=== PATIENT | female | born 1965 | race Two or more races ===

== ENCOUNTER → 2024-11-12 | Outpatient (CLI) | payer MEDICAID, SELFPAY ==
--- NOTE | 2024-11-12 14:30 | XR_ITS ---
Examination: Breast ultrasound complete, bilateral Date and time of exam: November 12, 2024 1434 hours INDICATIONS: Stinging sensation in the left nipple beginning 3 months ago Technique: Real-time grayscale ultrasonographic imaging bilateral breasts, including all 4 quadrants as well as nipple retroareolar and axillary regions. Findings: Sonographic images right and left breast demonstrated no cystic or solid masses IMPRESSION: BI-RADS Category 1: Negative study
== END | disposition home or self-care (01) ==
PROVIDERS: PCP Physician Assistant; Referring Provider Physician Assistant; Visit Provider Physician Assistant
DX: R92.30 Dense breasts, unspecified (principal); N64.4 Mastodynia
CPT/HCPCS: 76641

== ENCOUNTER 2025-01-03 09:04 | Outpatient (CLI) | payer MEDICAID, SELFPAY ==
[2024-12-31 14:43] LABS: Basophils # (Auto) 0.1 Thou/mm3 (0.0-0.2); Basophils % (Auto) 1 % (0-2.5); Eosinophils # (Auto) 0.1 Thou/mm3 (0.0-0.5); Eosinophils % (Auto) 2 % (0-10); Hematocrit 47.8 % (36.0-46.0); Hemoglobin 15.6 g/dL (12.0-16.0); Immature Granulocytes Auto 0.04 Thou/mm3 (0.00-0.00); Lymphocytes # (Auto) 3.1 Thou/mm3 (1.0-4.8); Lymphocytes % (Auto) 35 % (10-50); Mean Corpuscular HGB Conc 32.6 g/dl (31.0-37.0); Mean Corpuscular Hemoglobin 29.3 pg (25.0-35.0); Mean Corpuscular Volume 90 fL (80-100); Monocytes # (Auto) 0.6 Thou/mm3 (0.0-0.8); Monocytes % (Auto) 7 % (0-12); Neutrophils # (Auto) 4.9 Thou/mm3 (1.8-7.7); Neutrophils % (Auto) 56 % (37-80); Nucleated Red Blood Cell # 0.00 Thou/mm3 (0.00-0.00); Nucleated Red Blood Cell % 0 /100 WBC (0); Platelet Count 302 Thou/mm3 (140-440); RDW Standard Deviation 43.6 fL (36.4-46.3); Red Blood Count 5.33 Miln/mm3 (4.00-5.20); White Blood Count 8.8 Thou/mm3 (3.6-11.0)
[2024-12-31 15:00] LABS: INR 1.0 (0.9-1.3); Partial Thromboplastin Time 26.8 Seconds (22.0-36.0); Prothrombin Time 11.1 Seconds (9.0-12.2)
--- NOTE | 2025-01-03 09:30 | XR_ITS ---
Examination: Ultrasound-guided percutaneous liver biopsy Ultrasound abdomen limited Exam date and time: January 03, 2025 0955 hours INDICATIONS: Elevated liver function tests on laboratory examination this month. Informed consent provided. Technique: A timeout was completed, verifying correct patient, procedure, site, positioning, and special equipment if applicable. The patient was placed in supine position for right lobe liver biopsy. The patient's skin was prepped and draped in sterile fashion. Maximum sterile barrier technique, hand hygiene, ultrasound sterile technique 1% lidocaine was used to anesthetize the skin and subcutaneous tissues. Ultrasound was utilized for two 18-gauge core liver biopsies, utilizing a BioPince needle. Specimens appear adequate. Estimated blood loss 0 cc. The patient tolerated the procedure well and there were no complications. Impression: Successful ultrasound-guided percutaneous liver biopsy.
[2025-01-03 10:33] VITALS: BP 160/88; PULSE 61; RESP 13; O2SAT 98
[2025-01-03 11:00] VITALS: BP 139/87; PULSE 58; RESP 20; O2SAT 98
[2025-01-03 11:15] VITALS: BP 140/86; PULSE 62; RESP 21; O2SAT 97
[2025-01-03 11:30] VITALS: BP 145/84; PULSE 64; RESP 15; O2SAT 98
== END 2025-01-03 11:38 | disposition home or self-care (01) ==
PROVIDERS: Radiology Diagnostic Radiology; PCP Physician Assistant; Referring Provider Internal Medicine Gastroenterology; Visit Provider Internal Medicine Gastroenterology
DX: K76.89 Other specified diseases of liver (principal); B17.9 Acute viral hepatitis, unspecified; Z01.812 Encounter for preprocedural laboratory examination
CPT/HCPCS: 47000; 36415; 76942; 85025; 85610; 85730

== ENCOUNTER → 2025-05-30 | Outpatient (CLI) | payer MEDICAID, SELFPAY ==
--- NOTE | 2025-05-30 14:15 | XR_ITS ---
Examination: Screening digital mammography, bilateral Computer aided detection 3-D breast Tomosynthesis, bilateral Date and time of exam: 05/30/2025, 2:29 p.m. Comparisons: 04/16/2024 Indications: Screening Technique: Nonmagnified MLO, CC views of the breasts to been obtained, reconstructed from 3-D Tomosynthesis images. R2 computer aided detection program utilized for evaluation of suspicious masses and/or abnormal calcifications. 3-D Tomosynthesis images obtained. Technologist: Findings: There are scattered areas of fibroglandular density. No evidence of abnormal masses or suspicious calcifications. Impression: BI-RADS category 1: Negative findings (within normal) Recommend 1 year follow-up mammogram
== END | disposition home or self-care (01) ==
PROVIDERS: PCP Physician Assistant; Referring Provider Physician Assistant; Visit Provider Physician Assistant
DX: Z12.31 Encounter for screening mammogram for malignant neoplasm of breast (principal); R92.313 Mammographic fatty tissue density, bilateral breasts
CPT/HCPCS: 77063; 77067